=== PATIENT | male | born 1965 | race Caucasian/White ===

== ENCOUNTER 2017-01-27 02:40 | Emergency (ER) | payer MEDICARE, OTHER ==
[~2017-01-27] VITALS: Ht 193 cm; Wt 105.0 kg
[~2017-01-27 02:40] MED LIST: BENZ1TAB OR; DIVA250T OR; INVE1.5T OR; PLAV75TA OR
[2017-01-27 02:45] VITALS: BP 157/91; PULSE 82; RESP 18; TEMP 98; O2SAT 94
[2017-01-27] MEDS ORDERED: diphenhydrAMINE HCL 50 MG/ML VIAL IVP ONE (03:15)
[2017-01-27] MEDS ORDERED: PROCHLORPERAZINE INJ 10 MG/2 ML VIAL IVP ONE (03:15)
--- NOTE | 2017-01-27 03:30 | PD ---
HPI . Headache Chief Complaint: Medical Clearance Time Seen by Provider: 03:06 Travel History International Travel<30 days: No Contact w/Intl Traveler<30days: No Traveled to known affect area: No History of Present Illness HPI This patient was brought to us from [facility], where he is under an ex- partite for cocaine abuse. He states that he was asleep when he was suddenly awakened by a severe headache. EMS was called and he was brought to the hospital. He states that his headache is spontaneously improving. He further states that he has been under a doctor's care for headaches for quite some time now. He reports daily headaches. The headaches are exacerbated by cocaine use. He states that his head pain on arrival here is a 5/10. He describes a sharp pain. He does not have any associated symptoms such as blurred vision, vomiting. PFSH Past Medical History Bipolar Disorder: Yes Depression: Yes Cancer: Yes (COLON) Cardiac Catheterization: Yes Cardiovascular Problems: Yes (per patient report ) High Cholesterol: Yes Chest Pain: Yes COPD: Yes Cerebrovascular Accident: Yes (per patient report ) Diminished Hearing: No Hypertension: Yes Myocardial Infarction: Yes Tetanus Vaccination: < 5 Years Influenza Vaccination: No Past Surgical History Abdominal Surgery: Yes Appendectomy: Yes Coronary Stent: Yes Oral Surgery: Yes Social History Alcohol Use: Yes (OCCASIONALLY - once a year. ) Tobacco Use: Yes (1.5-2 PPD) Substance Use: Yes (COCAINE 01/26/2017) Allergies-Medications (Allergen,Severity, Reaction): Coded Allergies: No Known Allergies (Verified , 01/21/12) Reported Meds & Prescriptions Reported Meds & Active Scripts Active Review of Systems Except as stated in HPI: all other systems reviewed are Neg General / Constitutional: No: Fever, Chills Eyes: No: Blurred Vision HENT: Positive: Headaches Cardiovascular: No: Chest Pain or Discomfort Respiratory: No: Shortness of Breath Gastrointestinal: No: Nausea, Vomiting Psychiatric: Positive: Substance Abuse Physical Exam Narrative GENERAL: Awake and alert and in no acute distress. SKIN: Warm and dry. HEAD: Atraumatic. Normocephalic. Bitemporal tenderness. EYES: Pupils equal and round. Extraocular movements intact. ENT: No nasal bleeding or discharge. Mucous membranes pink and moist. NECK: Trachea midline. Neck supple and nontender. CARDIOVASCULAR: Regular rate and rhythm. Heart sounds normal. RESPIRATORY: No accessory muscle use. Lungs clear with full air movement throughout. GASTROINTESTINAL: Abdomen soft, non-tender, nondistended. MUSCULOSKELETAL: No obvious deformities. No edema. NEUROLOGICAL: Awake and alert. No obvious cranial nerve deficits. Motor grossly within normal limits. Normal speech. PSYCHIATRIC: Appropriate mood and affect; insight and judgment normal. Data Data Last Documented VS Vital Signs Date Time Temp Pulse Resp B/P Pulse Ox O2 Delivery O2 Flow Rate FiO2 01/27/17 02:45 98.0 82 18 157/91 94 Orders Complete Blood Count With Diff (01/27/17 03:06) Comprehensive Metabolic Panel (01/27/17 03:06) Drug Screen, Random Urine (01/27/17 03:06) Ct Brain W/O Iv Contrast(Rout) (01/27/17 03:06) Iv Access Insert/Monitor (01/27/17 03:06) Prochlorperazine Inj (Compazine Inj) (01/27/17 03:15) Diphenhydramine Inj (Benadryl Inj) (01/27/17 03:15) Labs Laboratory Tests Test 01/27/17 03:21 White Blood Count 8.3 TH/MM3 Red Blood Count 4.66 MIL/MM3 Hemoglobin 13.9 GM/DL Hematocrit 41.6 % Mean Corpuscular Volume 89.2 FL Mean Corpuscular Hemoglobin 29.7 PG Mean Corpuscular Hemoglobin 33.4 % Concent Red Cell Distribution Width 14.9 % Platelet Count 331 TH/MM3 Mean Platelet Volume 6.5 FL Neutrophils (%) (Auto) 60.4 % Lymphocytes (%) (Auto) 28.9 % Monocytes (%) (Auto) 7.1 % Eosinophils (%) (Auto) 2.3 % Basophils (%) (Auto) 1.3 % Neutrophils # (Auto) 5.0 TH/MM3 Lymphocytes # (Auto) 2.4 TH/MM3 Monocytes # (Auto) 0.6 TH/MM3 Eosinophils # (Auto) 0.2 TH/MM3 Basophils # (Auto) 0.1 TH/MM3 CBC Comment DIFF FINAL Differential Comment Sodium Level 141 MEQ/L Potassium Level 3.9 MEQ/L Chloride Level 106 MEQ/L Carbon Dioxide Level 28.1 MEQ/L Anion Gap 7 MEQ/L Blood Urea Nitrogen 8 MG/DL Creatinine 1.13 MG/DL Estimat Glomerular Filtration 69 ML/MIN Rate Random Glucose 88 MG/DL Calcium Level 9.0 MG/DL Total Bilirubin 0.4 MG/DL Aspartate Amino Transf 21 U/L (AST/SGOT) Alanine Aminotransferase 27 U/L (ALT/SGPT) Alkaline Phosphatase 70 U/L Total Protein 7.0 GM/DL Albumin 3.5 GM/DL MDM Medical Decision Making Medical Screen Exam Complete: Yes Emergency Medical Condition: Yes Interpretation(s) EKG shows a normal sinus rhythm with no acute changes. Differential Diagnosis Differential diagnosis of headache includes but is not limited to migraine, muscle contraction headache, brain tumor, brain bleed Narrative Course This patient presents with the chief complaint of headache. It is spontaneously improving. I have ordered Compazine and Benadryl. Since he was sent here from another facility, I will do a psych clearance exam and add a head CT. However, I suspect this is just his usual headache. Last Impressions Head CT 01/27/17 0306 Signed Impressions: Service Date/Time: Friday, January 27, 2017 03:26 - CONCLUSION: Unremarkable study. Dong Gutierrez MD CBC & BMP Diagram 01/27/17 03:21 The patient has not produced a urine sample so he does not have a drug screen. However, he admits to cocaine. The drug screen will not make any difference in treatment. This patient is stable to return to [facility], [place] Diagnosis Primary Impression: Headache Qualified Code: R51 - Acute nonintractable headache, unspecified headache type Patient Instructions: Cocaine Abuse (DC), General Headache (ED), General Instructions Disposition: 01 DISCHARGE HOME Condition: Stable Danette Loyola MD Jan 27, 2017 03:30
[2017-01-27 03:32] LABS: BASOPHIL # 0.1 TH/MM3 (0-0.2); BASOPHIL % 1.3 % (0.0-2.0); EOSINOPHIL # 0.2 TH/MM3 (0-0.4); EOSINOPHIL % 2.3 % (0.0-4.0); HEMATOCRIT 41.6 % (39.0-51.0); HEMO FLAGS DIFF FINAL; LYMPH % 28.9 % (9.0-44.0); LYMPHOCYTE # 2.4 TH/MM3 (1.0-4.8); MEAN CELL VOLUME 89.2 FL (80.0-100.0); MEAN CORPUSCULAR HEMOGLOBIN 29.7 PG (27.0-34.0); MEAN CORPUSCULAR HGB CONC 33.4 % (32.0-36.0); MONO % 7.1 % (0.0-8.0); NEUT % 60.4 % (16.0-70.0); PLATELET COUNT 331 TH/MM3 (150-450); RED BLOOD COUNT 4.66 MIL/MM3 (4.50-5.90); RED CELL DISTRIBUTION WIDTH 14.9 % (11.6-17.2); WHITE BLOOD COUNT 8.3 TH/MM3 (4.0-11.0)
--- NOTE | 2017-01-27 03:49 | RADRPT ---
EXAM DATE/TIME: 01/27/2017 03:26 [facility] COMPARISON: No previous studies available for comparison. INDICATIONS : Headaches. RADIATION DOSE: 56.35 CTDIvol (mGy) MEDICAL HISTORY : Cerebrovascular disease. Hypertension. SURGICAL HISTORY : None. ENCOUNTER: Initial ACUITY: 1 day PAIN SCALE: 5/10 LOCATION: cranial TECHNIQUE: Multiple contiguous axial images were obtained of the head. Using automated exposure control and adj ustment of the mA and/or kV according to patient size, radiation dose was kept as low as reasonably a chievable to obtain optimal diagnostic quality images. FINDINGS: There is no evidence for intracranial hemorrhage, mass effect, mass lesions, edema, or extra-axial fl uid collections. The visualized bony structures appear intact. The ventricles are normal size for t he patient's age. There are no signs of acute infarction for technique. CONCLUSION: Unremarkable study. Dong Gutierrez MD on January 27, 2017 at 3:47 Board Certified Radiologist. This report was verified electronically.
[2017-01-27 04:09] LABS: ALKALINE PHOSPHATASE 70 U/L (45-117); TOTAL BILIRUBIN ADULT 0.4 MG/DL (0.2-1.0)
[2017-01-27 04:11] LABS: ALT (GPT) 27 U/L (12-78); ANION GAP 7 MEQ/L (5-15); AST (GOT) 21 U/L (15-37); BICARBONATE 28.1 MEQ/L (21.0-32.0); BLOOD UREA NITROGEN 8 MG/DL (7-18); CHLORIDE 106 MEQ/L (98-107); GLOMERULAR FILTRATION RATE 69 ML/MIN (>89); POTASSIUM 3.9 MEQ/L (3.5-5.1); SODIUM (NA) 141 MEQ/L (136-145)
--- NOTE | 2017-01-27 14:50 | EKG ---
Date Performed: 01/27/2017 Time Performed: 02:47:29 PTAGE: 51 years EKG: Poor initial anterior forces which may be normal variant Otherwise within normal limits Sin ce PREVIOUS TRACING 06/17/2016, PVCs have resolved. PREVIOUS TRACIN06/17/2016 02.05 DOCTOR: El Schneider Interpretating Date/Time 01/27/2017 14:49:15
== END 2017-01-27 06:38 ==
LOC: NEPC 02:40
DX: R51 Headache (principal); E78.00 Pure hypercholesterolemia, unspecified; J44.9 Chronic obstructive pulmonary disease, unspecified; I10 Essential (primary) hypertension; I25.2 Old myocardial infarction; F17.210 Nicotine dependence, cigarettes, uncomplicated; R94.31 Abnormal electrocardiogram [ECG] [EKG]; Z86.73 Personal history of transient ischemic attack (TIA), and cerebral infarction without residual deficits; Z95.5 Presence of coronary angioplasty implant and graft
CPT/HCPCS: 70450; 80053; 85025; 93005; 96374; 96375; 99285; J0780; J1200

== ENCOUNTER 2017-09-18 23:53 | Emergency (ER) | payer MEDICARE, MEDICAID ==
[~2017-09-18] VITALS: Ht 193 cm; Wt 115.0 kg
[2017-09-18 23:56] VITALS: BP 146/83; PULSE 118; RESP 20; TEMP 98; O2SAT 94
[2017-09-19] MEDS ORDERED: IBUPROFEN 800 MG TAB PO ONE (02:45)
--- NOTE | 2017-09-19 02:51 | PD ---
HPI Chief Complaint: Oral / Dental Pain or Problem Time Seen by Provider: 02:14 Travel History International Travel<30 days: No Contact w/Intl Traveler<30days: No Traveled to known affect area: No History of Present Illness HPI Patient is 52-year-old male presented to emergency for evaluation of dental pain. Patient states he has a piece of tooth sticking out of his gums. He states that he had his tooth removed 4 months ago, and 3-4 days ago noticed the tooth sticking out. Patient reports that he's had all of his teeth extracted and has had several episodes incidence incidence of bone or tooth fragments erupting to the gumline. He has not attempted to contact his dentist this time. He states his pain is 8 out of 10 and is throbbing. He also reports pain on his tongue because it keeps rubbing up against side of the tooth. There are no alleviating factors, pain is exacerbated with chewing. He denies any fever, chills, nausea or vomiting. PFSH Past Medical History Bipolar Disorder: Yes Depression: Yes Cancer: Yes (COLON) Cardiac Catheterization: Yes Cardiovascular Problems: Yes (per patient report ) High Cholesterol: Yes Chest Pain: Yes COPD: Yes Cerebrovascular Accident: Yes (TIA) Diminished Hearing: No Hypertension: Yes Myocardial Infarction: Yes Past Surgical History Abdominal Surgery: Yes (COLOSTOMY W/REVERSAL, TUMOR) Appendectomy: Yes Coronary Stent: Yes Oral Surgery: Yes Social History Alcohol Use: Yes (OCCASIONALLY - once a year. ) Tobacco Use: Yes (1PPD) Substance Use: Yes (WEED, COCAINE 01/26/2017) Allergies-Medications (Allergen,Severity, Reaction): Coded Allergies: No Known Allergies (Verified Adverse Reaction, Unknown, 09/19/17) Reported Meds & Prescriptions Reported Meds & Active Scripts Active Review of Systems Except as stated in HPI: all other systems reviewed are Neg HENT: Positive: Dental Difficulties Physical Exam Narrative GENERAL: Well-developed, well-nourished, alert male. Resting in no acute distress. SKIN: Warm and dry. HEAD: Normocephalic. MOUTH: Mucous membranes moist, no lesions, tongue and gums appear normal. Left lower inner gumline has what appears to be a tooth fragment erupting to the medial aspect. No erythema, edema noted to the gums. EYES: No scleral icterus. No injection or drainage. NECK: Supple, trachea midline. No JVD or lymphadenopathy. CARDIOVASCULAR: Regular rate and rhythm without murmurs, gallops, or rubs. RESPIRATORY: Breath sounds equal bilaterally. No accessory muscle use. GASTROINTESTINAL: Abdomen soft, non-tender, nondistended. MUSCULOSKELETAL: No cyanosis, or edema. BACK: Nontender without obvious deformity. No CVA tenderness. Data Data Last Documented VS Vital Signs Date Time Temp Pulse Resp B/P (MAP) Pulse Ox O2 Delivery O2 Flow Rate FiO2 09/18/17 23:56 98.0 118 20 146/83 (104) 94 Orders Orders Ibuprofen (Motrin) (09/19/17 02:45) [facility] Medical Decision Making Medical Screen Exam Complete: Yes Emergency Medical Condition: Yes Interpretation(s) Vital Signs Date Time Temp Pulse Resp B/P (MAP) Pulse Ox O2 Delivery O2 Flow Rate FiO2 09/18/17 23:56 98.0 118 20 146/83 (104) 94 Differential Diagnosis Abscess versus tooth fragment versus abscess versus other Narrative Course Patient is a 52-year-old male that presented to emergency for evaluation of a piece of tooth or bone erupting through his gumline. Patient is mildly tachycardic on arrival however he appears to be slightly agitated and pain. He is otherwise in no acute distress. There is a tooth or bone fragment on the medial aspect of lower gumline. Discussed with attending physician. Patient will need to follow up with a dentist. He was offered ibuprofen and accepted. He was encouraged to return to emergency department for any new or worsening symptoms. Patient verbalized understanding of instructions. Patient stable for discharge. Diagnosis Primary Impression: Dental anomaly Referrals: Dentist 2 days Patient Instructions: General Instructions Additional Instructions: Follow-up with your dentist Take ibuprofen as needed and as directed for pain Trial [id number] Orajel or similar agent and use as directed Return to the emergency department for any new or worsening symptoms Med/Other Pt SpecificInfo: No Change to Meds Disposition: 01 DISCHARGE HOME Condition: Stable Federica Gibbs Sep 19, 2017 02:51
== END 2017-09-19 03:00 | disposition home or self-care (01) ==
LOC: NEPD 23:53
DX: K08.89 Other specified disorders of teeth and supporting structures (principal); F31.9 Bipolar disorder, unspecified; I10 Essential (primary) hypertension; E78.00 Pure hypercholesterolemia, unspecified; J44.9 Chronic obstructive pulmonary disease, unspecified; I25.2 Old myocardial infarction; F17.200 Nicotine dependence, unspecified, uncomplicated; F12.90 Cannabis use, unspecified, uncomplicated; Z86.73 Personal history of transient ischemic attack (TIA), and cerebral infarction without residual deficits
CPT/HCPCS: 99283